=== PATIENT | male | born 1960 | race Caucasian/White ===

== ENCOUNTER 2016-08-29 17:38 | Emergency (ER) | payer BC, OTHER ==
[2016-08-29 18:33] VITALS: TEMP 98.1
[2016-08-29] MEDS ORDERED: RX INFO: IV CONTRAST WAS GIVEN 1 EACH MISC MISCELLANE PRN (19:28)
[2016-08-29] MEDS ORDERED: SODIUM CHLORIDE 0.9% 1,000 ML IV STA ×2 (19:29→19:35)
[2016-08-29 19:33] VITALS: RESP 16
[2016-08-29] MEDS ORDERED: MECLIZINE 12.5 MG TAB PO STA (19:34)
[2016-08-29 19:50] LABS: Basophils % (A) 0 %; CHCM 34.9; Eosinophils # (A) 0.1 k/uL (0-0.7); Eosinophils % (A) 1 %; HCT 49.3 % (39.0-53.0); HDW 2.63; HGB 16.6 gm/dL (13.0-17.5); Luc # (Auto) 0.06; Luc % (Auto) 1; Lymphocytes # (A) 1.1 k/uL (1.0-4.8); Lymphocytes % (A) 9 %; MCHC 33.7 g/dL (31.0-37.0); MCV 86.3 fL (80.0-100.0); Mean Platelet Volume 7.3; Monocytes # (A) 0.3 k/uL (0-1.0); Monocytes % (A) 2 %; Neutrophils # (A) 10.7 k/uL (1.3-7.7); Neutrophils % (A) 88 %; RBC 5.72 m/uL (4.30-5.90); RDW 13.7 % (11.5-15.5); WBC 12.2 k/uL (3.8-10.6); WBC (Perox) 12.14
[2016-08-29 19:58] LABS: Appearance,Urine Clear (Clear); Bilirubin,Urine Negative (Negative); Glucose,Urine (UA) Negative (Negative); Ketones,Urine 1+ (Negative); Leukocyte Esterase,Urine Negative (Negative); Nitrite,Urine Negative (Negative); PH, Urine 7.5 (5.0-8.0); Protein,Urine Trace (Negative); Specific Gravity,Urine 1.016 (1.001-1.035); UA Billing (MACRO vs. MICRO) CHEM; Urobilinogen,Urine <2.0 mg/dL (<2.0)
[2016-08-29 20:03] LABS: Anion Gap 11 mmol/L; Blood Urea Nitrogen 16 mg/dL (9-20); Calcium 9.3 mg/dL (8.4-10.2); Carbon Dioxide 27 mmol/L (22-30); Chloride 102 mmol/L (98-107); Glucose 115 mg/dL (74-99); Magnesium 2.1 mg/dL (1.6-2.3); Non-African American GFR(MDRD) >60 (>60 ml/min/1.73 sqM); Potassium 4.4 mmol/L (3.5-5.1); Sodium 140 mmol/L (137-145)
[2016-08-29 20:04] LABS: Prothrombin Time 10.3 sec (9.0-12.0)
[2016-08-29] MEDS ORDERED: ONDANSETRON 4 MG/2 ML VIAL IVP STA (20:04)
--- NOTE | 2016-08-29 21:04 | CT ---
EXAMINATION TYPE: CT angio head neck DATE OF EXAM: 08/29/2016 8:56 PM COMPARISON: NONE HISTORY: Dizziness today. CT DLP: 1458.50 mGycm Automated exposure control for dose reduction was used. TECHNIQUE: Performed with IV Contrast, patient injected with 65 mL of Omnipaque 350. There are 3-D post processed images.. FINDINGS: There is bilateral contrast opacification of the vertebral arteries. There is bilateral patency of th e common internal and external carotid arteries. There is normal branching pattern of the great vesse ls on the aortic arch. Carotid arteries appear widely patent. There is patency of the vertebrobasilar artery system. There is arterial flow in the anterior middle and posterior cerebral arteries. There is no evidence of aneurysm or neovascularity. There is normal contrast opacification of the venous sinuses. IMPRESSION: NEGATIVE CT ANGIOGRAM OF THE NECK. NEGATIVE CT ANGIOGRAM OF THE BRAIN.
--- NOTE | 2016-08-29 21:05 | CT ---
EXAMINATION TYPE: CT brain wo con DATE OF EXAM: 08/29/2016 8:56 PM COMPARISON: NONE HISTORY: Dizziness today. CT DLP: 1458.50 mGycm Automated exposure control for dose reduction was used. FINDINGS: There is no mass effect nor midline shift. There is no sign of intracranial hemorrhage. Ventricles watson ve normal size. There is no sign of cerebral edema. Calvarium appears intact. IMPRESSION: Negative unenhanced head CT scan.
--- NOTE | 2016-08-29 21:34 | ED ---
Dizziness HPI - General Chief Complaint: Dizziness Stated Complaint: DIZZINESS, VOMITING, COLD SWEATS, WEAKNESS Time Seen by Provider: 08/29/16 19:08 Source: patient Mode of arrival: ambulatory Limitations: no limitations - History of Present Illness Initial Comments: The patient is a 56-year-old male who presents to the ED with a chief complaint of dizziness. The patient states that he has had the sensation of disequilibrium over the course the past 3 weeks. He states that his symptoms have been intermittent in nature. He states they resolve when he takes an antihistamine medication, such as Benadryl. Patient states that he recently stopped taking the antihistamine medication because he felt like he might be precipitating his dizziness. However, since that point in time, he notes that his symptoms have been more frequent and longer lasting. The patient denies any history of CVA. He denies any history of irregular heartbeat. Patient has no cardiac risk factors. Patient denies any history of thyroid disorder. He denies any fevers or chills. Denies any nasal congestion. Denies any cough. Denies any body aches. - Related Data Previous Rx's Medication Instructions Recorded Meclizine [Antivert] 25 mg PO TID PRN #12 tab 08/29/16 Allergies Allergy/AdvReac Type Severity Reaction Status Date / Time No Known Allergies Allergy Verified 08/29/16 19:53 Review of Systems ROS Statement: Those systems with pertinent positive or pertinent negative responses have been documented in the HPI. ROS Other: All systems not noted in ROS Statement are negative. Constitutional: Denies: fever, chills, weakness ENT: Denies: ear pain, throat pain, hearing loss, congestion Respiratory: Denies: cough, dyspnea, wheezes, stridor Cardiovascular: Denies: chest pain, palpitations Endocrine: Denies: fatigue Gastrointestinal: Reports: nausea. Denies: abdominal pain, vomiting, diarrhea, constipation Genitourinary: Denies: urgency, dysuria, frequency Musculoskeletal: Denies: back pain Skin: Denies: rash Neurological: Reports: vertigo. Denies: headache, weakness, numbness, paresthesias, confusion, abnormal gait Psychiatric: Denies: anxiety, depression Past Medical History Additional Past Medical History / Comment(s): kideny stone 20years ago History of Any Multi-Drug Resistant Organisms: None Reported Past Surgical History: No Surgical Hx Reported Past Psychological History: No Psychological Hx Reported Smoking Status: Never smoker Past Alcohol Use History: None Reported Past Drug Use History: None Reported General Exam Limitations: no limitations General appearance: alert, in no apparent distress Head exam: Present: atraumatic, normocephalic Eye exam: Present: normal appearance, PERRL, EOMI, other (patient has fatiguable lateral nystagmus) Pupils: Present: normal accommodation, other (pupils are 3mm, equal and reactive ) ENT exam: Present: normal exam, normal oropharynx Neck exam: Present: normal inspection, full ROM. Absent: thyromegaly Respiratory exam: Present: normal lung sounds bilaterally. Absent: respiratory distress, wheezes, rales, rhonchi, stridor, chest wall tenderness Cardiovascular Exam: Present: regular rate, normal rhythm GI/Abdominal exam: Present: soft. Absent: distended, tenderness, guarding, rebound Extremities exam: Present: normal inspection, full ROM Back exam: Present: normal inspection, full ROM Neurological exam: Present: alert, oriented X3 Psychiatric exam: Present: normal affect Skin exam: Present: warm, dry, intact Course Vital Signs 08/29/16 08/29/16 08/29/16 18:31 19:32 21:50 Temperature 98.1 F Pulse Rate 73 74 76 Respiratory 18 16 16 Rate Blood Pressure 173/116 180/107 180/96 O2 Sat by Pulse 98 98 98 Oximetry Medical Decision Making - Medical Decision Making Patient is a 56-year-old male who presents to ED with a chief complaint of vertigo. Patient states that his symptoms of the present intermittently over the course the past 2-3 weeks. Patient states that his symptoms are worsened with head movement. Patient does have a fatigable horizontal nystagmus to the left. Unfortunately, the patient has gait disturbance. Concern for possible underlying CVA or posterior circulation disorder. Check CT head and CTA head and neck. Bolus patient with IV fluids. Provide patient with Antivert. Check EKG. He patient on [facility]. 9:31 PM Updated patient of overall findings. He states that he is feeling 100% improved at this point in time. Patient is able to ambulate without difficulty. He is able to turn his head from [id number] without reproduction of his symptoms. Patient will be discharged with prescription for Antivert to take when experiencing vertigo at home. I have counseled the patient if he has worsening vertigo that does not resolve with Antivert, that he should return to the ED for further workup and possible MRI. I counseled the patient regarding follow-up with his PCP for further evaluation, even if his symptoms resolve. I have answered all of the patient's questions to his satisfaction. - Lab Data Result diagrams: 08/29/16 19:38 08/29/16 19:38 Lab Results 08/29/16 08/29/16 08/29/16 Range/Units 19:38 19:38 19:38 WBC 12.2 H (3.8-10.6) k/uL RBC 5.72 (4.30-5.90) m/uL Hgb 16.6 (13.0-17.5) gm/dL Hct 49.3 (39.0-53.0) % MCV 86.3 (80.0-100.0) fL MCH 29.0 (25.0-35.0) pg MCHC 33.7 (31.0-37.0) g/dL RDW 13.7 (11.5-15.5) % Plt Count 175 (150-450) k/uL Neutrophils % 88 % Lymphocytes % 9 % Monocytes % 2 % Eosinophils % 1 % Basophils % 0 % Neutrophils # 10.7 H (1.3-7.7) k/uL Lymphocytes # 1.1 (1.0-4.8) k/uL Monocytes # 0.3 (0-1.0) k/uL Eosinophils # 0.1 (0-0.7) k/uL Basophils # 0.0 (0-0.2) k/uL PT (9.0-12.0) sec INR (<1.1) APTT (22.0-30.0) sec Sodium 140 (137-145) mmol/L Potassium 4.4 (3.5-5.1) mmol/L Chloride 102 (98-107) mmol/L Carbon Dioxide 27 (22-30) mmol/L Anion Gap 11 mmol/L BUN 16 (9-20) mg/dL Creatinine 0.90 (0.66-1.25) mg/dL Est GFR (MDRD) Af Amer >60 (>60 ml/min/1.73 sqM) Est GFR (MDRD) Non-Af >60 (>60 ml/min/1.73 sqM) Glucose 115 H (74-99) mg/dL Calcium 9.3 (8.4-10.2) mg/dL Magnesium 2.1 (1.6-2.3) mg/dL Troponin I <0.012 (0.000-0.034) ng/mL TSH 2.460 (0.465-4.680) mIU/L Urine Color Urine Appearance (Clear) Urine pH (5.0-8.0) Ur Specific [place] (1.001-1.035) Urine Protein (Negative) Urine Glucose (UA) (Negative) Urine Ketones (Negative) Urine Blood (Negative) Urine Nitrite (Negative) Urine Bilirubin (Negative) Urine Urobilinogen (<2.0) mg/dL Ur Leukocyte Esterase (Negative) 08/29/16 08/29/16 Range/Units 19:38 19:53 WBC (3.8-10.6) k/uL RBC (4.30-5.90) m/uL Hgb (13.0-17.5) gm/dL Hct (39.0-53.0) % MCV (80.0-100.0) fL MCH (25.0-35.0) pg MCHC (31.0-37.0) g/dL RDW (11.5-15.5) % Plt Count (150-450) k/uL Neutrophils % % Lymphocytes % % Monocytes % % Eosinophils % % Basophils % % Neutrophils # (1.3-7.7) k/uL Lymphocytes # (1.0-4.8) k/uL Monocytes # (0-1.0) k/uL Eosinophils # (0-0.7) k/uL Basophils # (0-0.2) k/uL PT 10.3 (9.0-12.0) sec INR 1.0 (<1.1) APTT 23.0 (22.0-30.0) sec Sodium (137-145) mmol/L Potassium (3.5-5.1) mmol/L Chloride (98-107) mmol/L Carbon Dioxide (22-30) mmol/L Anion Gap mmol/L BUN (9-20) mg/dL Creatinine (0.66-1.25) mg/dL Est GFR (MDRD) Af Amer (>60 ml/min/1.73 sqM) Est GFR (MDRD) Non-Af (>60 ml/min/1.73 sqM) Glucose (74-99) mg/dL Calcium (8.4-10.2) mg/dL Magnesium (1.6-2.3) mg/dL Troponin I (0.000-0.034) ng/mL TSH (0.465-4.680) mIU/L Urine Color Yellow Urine Appearance Clear (Clear) Urine pH 7.5 (5.0-8.0) Ur Specific [place] 1.016 (1.001-1.035) Urine Protein Trace H (Negative) Urine Glucose (UA) Negative (Negative) Urine Ketones 1+ H (Negative) Urine Blood Negative (Negative) Urine Nitrite Negative (Negative) Urine Bilirubin Negative (Negative) Urine Urobilinogen <2.0 (<2.0) mg/dL Ur Leukocyte Esterase Negative (Negative) Disposition Clinical Impression: Vertigo Disposition: HOME SELF-CARE Instructions: Vertigo (ED) Additional Instructions: Please take Antivert at home every six hours as needed for your symptoms. Please return to the ED should you continue to have vertigo despite taking this medication. I have given you the name of a Primary Care Physician. Please call her office to schedule a follow up appointment should you need a PCP. Prescriptions: Meclizine [Antivert] 25 mg PO TID PRN #12 tab PRN Reason: Vertigo Referrals: Elba Tam MD [STAFF PHYSICIAN] - 09/05/16 (Dr. Tam is a Primary Care Physician. You can call her office to schedule a follow-up appointment, should you need one) Time of Disposition: 21:31
[2016-08-29 21:51] VITALS: BP 180/96; PULSE 76
== END 2016-08-29 21:51 | disposition home or self-care (01) ==
LOC: EC 17:38
DX: R42 Dizziness and giddiness (principal); R11.10 Vomiting, unspecified
CPT/HCPCS: 36415; 93005; 80048; 84443; 83735; 84484; 85025; 85610; 85730; 81003; 70496; 70450; 70498; 99284; 96374; Q9967; J2405

== ENCOUNTER 2019-10-07 12:04 | Emergency (ER) | payer BC, OTHER ==
[2019-10-07 12:21] VITALS: RESP 18
[2019-10-07] MEDS ORDERED: SODIUM CHLORIDE 0.9% 1,000 ML IV STA (12:34)
[2019-10-07] MEDS ORDERED: KETOROLAC 30 MG/ML 1 ML VIAL IVP STA (12:34)
[2019-10-07] MEDS ORDERED: PANTOPRAZOLE 40 MG/10 ML VIAL IVP STA (12:34)
[2019-10-07] MEDS ORDERED: ONDANSETRON 4 MG/2 ML VIAL IVP STA (12:34)
--- NOTE | 2019-10-07 12:37 | ED ---
Abdominal Pain HPI - General Chief Complaint: Abdominal Pain Stated Complaint: Abdominal Pain Time Seen by Provider: 10/07/19 12:29 Source: patient, family Mode of arrival: wheelchair Limitations: no limitations - History of Present Illness Initial Comments: Patient is a 59-year-old male presenting to the emergency department with a chief complaint of abdominal pain. Patient reports sudden onset of left flank pain on left lower quadrant abdominal pain. Reports the pain started early this morning and the pain continues to be constant. It is sharp in nature. Does report nausea with one episodes of nonbilious, nonbloody vomiting. Denies any testicular pain or swelling or penile discharge. Denies any hematuria, hematochezia or melena. Denies any night sweats fevers or chills. Denies any shortness of breath or chest pain. Does have history of kidney stones which occurred about 25 years ago. No history of abdominal surgeries. - Related Data Previous Rx's Medication Instructions Recorded Meclizine [Antivert] 25 mg PO TID PRN #12 tab 08/29/16 HYDROcodone/APAP 7.5-325MG [[place] 1 tab PO Q6HR PRN 3 Days #12 tab 10/07/19 7.5-325] Ondansetron Odt [Zofran Odt] 4 mg PO Q8HR PRN #20 tab 10/07/19 Tamsulosin [Flomax] 0.4 mg PO DAILY #7 cap 10/07/19 Allergies Allergy/AdvReac Type Severity Reaction Status Date / Time No Known Allergies Allergy Verified 10/07/19 12:21 Review of Systems ROS Statement: Those systems with pertinent positive or pertinent negative responses have been documented in the HPI. ROS Other: All systems not noted in ROS Statement are negative. Past Medical History Past Medical History: Hypertension Additional Past Medical History / Comment(s): kideny stone 20years ago History of Any Multi-Drug Resistant Organisms: None Reported Past Surgical History: No Surgical Hx Reported Past Psychological History: No Psychological Hx Reported Smoking Status: Never smoker Past Alcohol Use History: Heavy, Rare Past Drug Use History: None Reported General Exam Limitations: no limitations General appearance: alert, in no apparent distress Head exam: Present: atraumatic, normocephalic, normal inspection Eye exam: Present: normal appearance, PERRL, EOMI Pupils: Present: normal accommodation ENT exam: Present: normal exam, normal oropharynx, mucous membranes moist Neck exam: Present: normal inspection, full ROM Respiratory exam: Present: normal lung sounds bilaterally. Absent: respiratory distress, wheezes Cardiovascular Exam: Present: regular rate, normal rhythm, normal heart sounds GI/Abdominal exam: Present: soft, distended (Mild distention), tenderness (Left lower quadrant tenderness). Absent: guarding, rebound, rigid Extremities exam: Present: normal inspection, full ROM, normal capillary refill, other (+2 ulnar and radial pulses bilaterally.) Back exam: Present: normal inspection, full ROM, CVA tenderness (L) Neurological exam: Present: alert, oriented X3 Psychiatric exam: Present: normal affect, normal mood Skin exam: Present: warm, dry, intact, normal color Course Vital Signs 10/07/19 12:15 Temperature 97.5 F L Pulse Rate 76 Respiratory 18 Rate Blood Pressure 146/87 O2 Sat by Pulse 98 Oximetry Medical Decision Making - Medical Decision Making Patient is 59-year-old male presents emergency Department with a chief complaint of abdominal pain. Exam patient is sent left knee tenderness with left lower quadrant pain. CBC and CMP are unremarkable. UA does show elevated red blood cells with no signs of a urinary tract infection. CT abdomen and pelvis reveals a 2.5 mm stone in the proximal ureter with mild hydronephrosis on the left side. Patient was given analgesia, antiemetics and fluids in the ED. Patient will be discharged with Flomax, [place] and antiemetics. He was advised to follow-up with urologist. On reevaluation patient reports improvement in symptoms. He was advised about possible side effects of medication. Return parameters were thoroughly discussed with patient was understanding and agreeable. Case discussed with physician. - Lab Data Result diagrams: 10/07/19 13:05 10/07/19 13:05 Lab Results 10/07/19 10/07/19 10/07/19 Range/Units 13:05 13:05 13:05 WBC 11.6 H (3.8-10.6) k/uL RBC 5.53 (4.30-5.90) m/uL Hgb 16.2 (13.0-17.5) gm/dL Hct 48.2 (39.0-53.0) % MCV 87.1 (80.0-100.0) fL MCH 29.3 (25.0-35.0) pg MCHC 33.6 (31.0-37.0) g/dL RDW 13.6 (11.5-15.5) % Plt Count 209 (150-450) k/uL Neutrophils % 85 % Lymphocytes % 11 % Monocytes % 3 % Eosinophils % 1 % Basophils % 0 % Neutrophils # 9.9 H (1.3-7.7) k/uL Lymphocytes # 1.3 (1.0-4.8) k/uL Monocytes # 0.3 (0-1.0) k/uL Eosinophils # 0.1 (0-0.7) k/uL Basophils # 0.0 (0-0.2) k/uL Sodium 137 (137-145) mmol/L Potassium 5.2 H (3.5-5.1) mmol/L Chloride 104 (98-107) mmol/L Carbon Dioxide 24 (22-30) mmol/L Anion Gap 9 mmol/L BUN 24 H (9-20) mg/dL Creatinine 1.07 (0.66-1.25) mg/dL Est GFR (CKD-EPI)AfAm 89 (>60 ml/min/1.73 sqM) Est GFR (CKD-EPI)NonAf 77 (>60 ml/min/1.73 sqM) Glucose 148 H (74-99) mg/dL Calcium 9.3 (8.4-10.2) mg/dL Total Bilirubin 0.7 (0.2-1.3) mg/dL AST 42 (17-59) U/L ALT 60 H (4-49) U/L Alkaline Phosphatase 51 (38-126) U/L Total Protein 7.9 (6.3-8.2) g/dL Albumin 4.6 (3.5-5.0) g/dL Amylase 72 (30-110) U/L Lipase 214 (23-300) U/L Urine Color Yellow Urine Appearance Clear (Clear) Urine pH 5.0 (5.0-8.0) Ur Specific [place] 1.024 (1.001-1.035) Urine Protein Trace H (Negative) Urine Glucose (UA) Negative (Negative) Urine Ketones Negative (Negative) Urine Blood Moderate H (Negative) Urine Nitrite Negative (Negative) Urine Bilirubin Negative (Negative) Urine Urobilinogen <2.0 (<2.0) mg/dL Ur Leukocyte Esterase Negative (Negative) Urine RBC >182 H (0-5) /hpf Urine WBC 2 (0-5) /hpf Ur Squamous Epith Cells <1 (0-4) /hpf Urine Mucus Rare H (None) /hpf Disposition Clinical Impression: Abdominal pain, Renal stone, Hydronephrosis Disposition: HOME SELF-CARE Condition: Good Instructions (If sedation given, give patient instructions): Kidney Stones (ED) Additional Instructions: Take prescribed medication as directed. Follow-up with urologist. Return to emergency department if symptoms worsen. Is patient prescribed a controlled substance at d/c from ED?: No Referrals: None,Stated [Primary Care Provider] - 1-2 days Mook Dasilva MD [STAFF PHYSICIAN] - 1-2 days Time of Disposition: 14:18
[2019-10-07 13:31] LABS: Basophils % (A) 0 %; Eosinophils # (A) 0.1 k/uL (0-0.7); Eosinophils % (A) 1 %; HCT 48.2 % (39.0-53.0); HGB 16.2 gm/dL (13.0-17.5); Lymphocytes # (A) 1.3 k/uL (1.0-4.8); Lymphocytes % (A) 11 %; MCH 29.3 pg (25.0-35.0); MCHC 33.6 g/dL (31.0-37.0); MCV 87.1 fL (80.0-100.0); Monocytes # (A) 0.3 k/uL (0-1.0); Monocytes % (A) 3 %; Neutrophils # (A) 9.9 k/uL (1.3-7.7); Neutrophils % (A) 85 %; Platelet Count 209 k/uL (150-450); RBC 5.53 m/uL (4.30-5.90); RDW 13.6 % (11.5-15.5); WBC 11.6 k/uL (3.8-10.6)
[2019-10-07 13:34] LABS: Appearance,Urine Clear (Clear); Bilirubin,Urine Negative (Negative); Blood,Urine Moderate (Negative); Color,Urine Yellow; Glucose,Urine (UA) Negative (Negative); Ketones,Urine Negative (Negative); Leukocyte Esterase,Urine Negative (Negative); Mucus,Urine Rare /hpf; Nitrite,Urine Negative (Negative); Protein,Urine Trace (Negative); RBC,Urine >182 /hpf (0-5); Specific Gravity,Urine 1.024 (1.001-1.035); Squamous Epithelial Cell,Urine <1 /hpf (0-4); Urobilinogen,Urine <2.0 mg/dL (<2.0); WBC,Urine 2 /hpf (0-5)
[2019-10-07 13:39] LABS: Albumin 4.6 g/dL (3.5-5.0); Calcium 9.3 mg/dL (8.4-10.2); Potassium 5.2 mmol/L (3.5-5.1); Total Bilirubin 0.7 mg/dL (0.2-1.3); Total Protein 7.9 g/dL (6.3-8.2)
[2019-10-07] MEDS ORDERED: MORPHINE SULFATE 4 MG/ML SYRINGE IVP STA (13:50)
--- NOTE | 2019-10-07 14:02 | CT ---
EXAMINATION TYPE: CT abdomen pelvis w con DATE OF EXAM: 10/07/2019 COMPARISON: None HISTORY: Abdominal pain, LLQ pain CT DLP: 1719.5 mGycm CONTRAST: CT scan of the abdomen and pelvis is performed without Oral Contrast and with IV Contrast, patient in jected with 100 ml mL of Isovue 300. FINDINGS: LUNG BASES-: No visible nodule. No infiltrate. LIVER/GB: There is evidence of cholelithiasis without wall thickening. No space occupying hepatic lesion. Biliary tree is of normal caliber. PANCREAS: No inflammation. No distinct mass. SPLEEN: No splenic enlargement. No lesion seen. ADRENALS: No nodule. No thickening. KIDNEYS/BLADDER: Very mild left-sided hydronephrosis secondary to a proximal left ureteral 2.5 mm mat culus. Calculus is situated at the L2-3 level. Nonobstructing 3 mm calculus upper pole left kidney. N o distinct renal mass. Urinary bladder grossly unremarkable. BOWEL: Normal appendix. Normal bowel caliber. No inflammation. GENITAL ORGANS: No gross abnormality. LYMPH NODES: No greater than 1cm abdominal or pelvic lymph nodes are appreciated. AORTA: No significant abnormality. OSSEOUS STRUCTURES: No significant abnormality is seen. OTHER: Fat-containing umbilical hernia. IMPRESSION: 1. Very mild left-sided hydronephrosis secondary to a proximal left ureteral 2.5 mm calculus. Calculu s is situated at the L2-3 level.
[2019-10-07 14:37] VITALS: BP 123/76; PULSE 87; TEMP 97.2
== END 2019-10-07 14:38 | disposition home or self-care (01) ==
LOC: EC 12:04
DX: N13.2 Hydronephrosis with renal and ureteral calculous obstruction (principal)
CPT/HCPCS: 36415; 80053; 82150; 83690; 85025; 81001; 74177; 99284; 96374; 96375 ×3; 96361; J2270; J2405; J1885; C9113; Q9967

== ENCOUNTER → 2019-10-13 | Outpatient (CLI) | payer BC ==
--- NOTE | 2019-10-13 10:51 | XR ---
EXAMINATION TYPE: XR KUB DATE OF EXAM: 10/13/2019 COMPARISON: 09/17/2019 HISTORY: Left-sided pain TECHNIQUE: One view abdominal series FINDINGS: The osseous structures are intact. The bowel gas pattern is nonspecific. Left kidney: There are 2 calcifications overlying the left renal outline both measuring 2 mm. No yuly tional suspicious calcifications are seen. Calcifications the pelvis are likely vascular. Density conrad trally within the pelvis is nonspecific. IMPRESSION: 1. Suspect 2 calcifications within the left kidney both measuring approximately 2 mm. No additional d efinite suspicious calcifications noted..
== END | disposition home or self-care (01) ==
LOC: RADXRMAIN 10:26
PROVIDERS: ATTEND Urology
DX: N20.0 Calculus of kidney (principal); N20.1 Calculus of ureter
CPT/HCPCS: 74018

== ENCOUNTER → 2019-10-19 | Outpatient (CLI) | payer BC ==
[2019-10-19 09:03] LABS: Appearance,Urine Clear (Clear); Bilirubin,Urine Negative (Negative); Blood,Urine Negative (Negative); Color,Urine Yellow; Glucose,Urine (UA) Negative (Negative); Ketones,Urine Negative (Negative); Leukocyte Esterase,Urine Negative (Negative); Nitrite,Urine Negative (Negative); Protein,Urine Negative (Negative); Specific Gravity,Urine 1.022 (1.001-1.035); Urobilinogen,Urine <2.0 mg/dL (<2.0)
== END | disposition home or self-care (01) ==
LOC: LABPAT 08:18
PROVIDERS: ATTEND Urology
DX: Z01.818 Encounter for other preprocedural examination (principal); N20.0 Calculus of kidney
CPT/HCPCS: 81003; 87086

== ENCOUNTER 2019-10-26 09:41 | Day surgery (SDC) | payer BC ==
[2019-10-22 15:20] VITALS: BMI 32.3
--- NOTE | 2019-10-25 19:03 | P.GSHP ---
History of Present Illness H&P Date: 10/25/19 59 yo male who recently a left upj stone, 5mm and a 5mm left renal stone. They are symptomatic and would like these removed He comes for eswl left The risks complications and alternatives have been discussed. - Constitutional Constitutional: Denies chills, Denies fever - EENT Eyes: denies blurred vision, denies pain Ears, nose, mouth and throat: Denies headache, Denies sore throat - Cardiovascular Cardiovascular: Denies chest pain, Denies shortness of breath - Respiratory Respiratory: Denies cough, Denies 7 - Gastrointestinal Gastrointestinal: Denies abdominal pain, Denies diarrhea, Denies nausea, Denies vomiting - Genitourinary (Female) Genitourinary: Denies dysuria, Denies hematuria - Genitourinary (Male) Genitourinary: Denies dysuria, Denies hematuria - Musculoskeletal Musculoskeletal: Denies myalgias - Integumentary Integumentary: Denies pruritus, Denies rash - Neurological Neurological: Denies numbness, Denies weakness - Psychiatric Psychiatric: Denies anxiety, Denies depression - Endocrine Endocrine: Denies fatigue, Denies weight change Past Medical History Past Medical History: Hypertension Additional Past Medical History / Comment(s): kidney stones History of Any Multi-Drug Resistant Organisms: None Reported Past Surgical History: No Surgical Hx Reported Additional Past Surgical History / Comment(s): lithotripsy Past Anesthesia/Blood Transfusion Reactions: Postoperative Nausea & Vomiting (PONV) Smoking Status: Never smoker Medications and Allergies Home Medications Medication Instructions Recorded Confirmed Type Lisinopril [Zestril] 5 mg PO HS 10/22/19 10/22/19 History Allergies Allergy/AdvReac Type Severity Reaction Status Date / Time No Known Allergies Allergy Verified 10/22/19 15:16 Surgical - Exam - General well developed, well nourished, no distress - Eyes PERRL - ENT no hearing loss - Neck no masses - Respiratory normal expansion, normal respiratory effort - Cardiovascular Rhythm: regular - Abdomen Abdomen: soft, non tender - Genitourinary normal penis with no external lesions, testicles present - Integumentary no rash, no growths - Neurologic normal coordination, normal sensation - Musculoskeletal normal gait, normal posture - Psychiatric oriented to time, oriented to person, oriented to place, speech is normal, memory intact Results - Imaging Abdominal x-ray: report reviewed, image reviewed CT scan - abdomen: report reviewed, image reviewed CT scan - pelvis: report reviewed, image reviewed Assessment and Plan Assessment: Impression: Left renal stones Plan: ESWL left
[~2019-10-26 09:41] MED LIST: LACTATED RINGERS 1,000 ML IV SCH; LIDOCAINE 1% (10MG/ML) FOR IV START INTRADERMA PRN; Pre Op ABX Message 1 EACH MISC MISCELLANE ONE
--- NOTE | 2019-10-26 10:13 | XR ---
EXAMINATION TYPE: XR KUB DATE OF EXAM: 10/26/2019 Comparison: 10/13/2019 Clinical History: 59-year-old male left-sided kidney stones, lithotripsy today Findings: Subtle 3.5 mm density in the left side of the pelvis not clearly seen on 10/13/2019. Remainder of the r ounded calcifications are unchanged. Nonobstructive bowel gas pattern. Mild stool in the right side o f the abdomen. Impression: Suspected 3.5 mm distal left ureteral calculus.
[2019-10-26 10:17] VITALS: RESP 16; TEMP 97.3
[2019-10-26] MEDS ORDERED: KETAMINE 10 MG/ML 20 ML VIAL ONE (10:39)
[2019-10-26] MEDS ORDERED: LIDOCAINE 1% INJ 10MG/ML (20 ML MDV) ONE (10:39)
[2019-10-26] MEDS ORDERED: FUROSEMIDE 10 MG/ML 2 ML VIAL ONE (10:39)
[2019-10-26] MEDS ORDERED: PROPOFOL 10 MG/ML 20 ML VIAL IV ONE (10:39)
[2019-10-26] MEDS ORDERED: MIDAZOLAM 2 MG/2 ML VIAL ONE (10:39)
[2019-10-26] MEDS ORDERED: fentaNYL (PF) 50 MCG/ML 2 ML AMP ONE (10:39)
--- NOTE | 2019-10-26 11:21 | P.OP ---
Date of Procedure: 10/26/19 Preoperative Diagnosis: Left ureteral stone Postoperative Diagnosis: Same Procedure(s) Performed: Extracorporeal shockwave lithotripsy left, 2500 shocks of energy level Anesthesia: MAC Surgeon: Mook Dasilva Estimated Blood Loss (ml): 0 Pathology: none sent Condition: stable Disposition: PACU Indications for Procedure: The patient is 59. He has a 5 mm left ureteral stone. He is having pain. He wishes to be removed. We discussed options. He comes for shockwave lithotrip sy. The KUB today shows the stone is moved down into the true pelvis. Description of Procedure: Patient is brought to the operating suite. He is given IV sedation on the op erating table 2500 shocks at energy 6 administered. The stone appears to fracture. She patient awake and returned recovery in good condition. He is given 10 mg Lasix preoperatively. He'll be discharged home upon recovery and found the office in one week with a KUB.
[2019-10-26 12:24] VITALS: BP 146/95; PULSE 76
== END 2019-10-26 12:26 | disposition home or self-care (01) ==
LOC: ORWHC2ENDO 09:41
PROVIDERS: ATTEND Urology
DX: N20.1 Calculus of ureter (principal); I10 Essential (primary) hypertension; Z79.899 Other long term (current) drug therapy; Z98.890 Other specified postprocedural states; Z91.89 Other specified personal risk factors, not elsewhere classified; Z87.442 Personal history of urinary calculi; Z83.3 Family history of diabetes mellitus; Z82.49 Family history of ischemic heart disease and other diseases of the circulatory system
CPT/HCPCS: 74018; 50590; J2250; J1940; J2001; J3010; J2704

== ENCOUNTER → 2019-11-02 | Outpatient (CLI) | payer BC ==
--- NOTE | 2019-11-02 08:55 | XR ---
EXAMINATION TYPE: XR KUB DATE OF EXAM: 11/02/2019 COMPARISON: NONE HISTORY: Pain TECHNIQUE: One view abdominal series FINDINGS: The osseous structures are intact. The bowel gas pattern is nonspecific. There is a lucent lesion in volving the right pubic ramus. There is a 3 mm calcification left hemipelvis stable in position. Calcifications involving the right hemipelvis are also stable. They appear vascular. Intermediate density overlying the central margin o f the pelvis and bladder also stable dating back to multiple exams. Right kidney: No definite calcifications. Left kidney: There is a 2 mm left upper pole renal calculus. Multiple gallstones incidentally noted. IMPRESSION: 1. Stable suspected distal left ureteral calculus measuring approximately 3 mm. 2. Stable upper pole left renal calculus. Lower pole calculus appears to migrated into the ureter and is now noted in the pelvis as discussed above.
== END | disposition home or self-care (01) ==
LOC: RADXRMAIN 06:53
PROVIDERS: ATTEND Urology
DX: N20.0 Calculus of kidney (principal)
CPT/HCPCS: 74018

== ENCOUNTER → 2020-02-22 | Outpatient (CLI) | payer BC ==
--- NOTE | 2020-02-22 15:46 | XR ---
EXAMINATION TYPE: XR KUB DATE OF EXAM: 02/22/2020 10:13 AM CLINICAL HISTORY: Left flank pain. History of stones. TECHNIQUE: Supine images of the abdomen and pelvis were obtained COMPARISON: KUB 11/02/2019. CT abdomen pelvis 10/07/2019. FINDINGS: Cholelithiasis. 3 mm and punctate calcifications overlie the left renal upper pole, [facility] ed from 11/02/2019 comparison. The previously demonstrated distal left ureteral 3 mm calcification is not visualized on current exam and likely passed. Redemonstrated pelvic phleboliths and vas deferens calcification. Nonspecific bowel gas pattern. No organomegaly. The osseous structures are intact. IMPRESSION: 1. Previously demonstrated left distal ureteral 3 mm calculus on 11/02/2019 comparison is not seen on current exam, and likely passed. 2. Unchanged left nephrolithiasis. 3. Cholelithiasis.
== END | disposition home or self-care (01) ==
LOC: RADXRMAIN 10:01
PROVIDERS: ATTEND Urology
DX: N20.0 Calculus of kidney (principal); K80.20 Calculus of gallbladder without cholecystitis without obstruction
CPT/HCPCS: 74018

== ENCOUNTER → 2020-05-31 | Outpatient (CLI) | payer BC ==
[2020-05-31 08:14] LABS: HCT 45.4 % (39.0-53.0); HGB 15.7 gm/dL (13.0-17.5); MCH 29.7 pg (25.0-35.0); MCHC 34.6 g/dL (31.0-37.0); MCV 85.6 fL (80.0-100.0); Mean Platelet Volume 7.2; Platelet Count 206 k/uL (150-450); RDW 13.3 % (11.5-15.5); WBC 7.1 k/uL (3.8-10.6)
== END | disposition home or self-care (01) ==
LOC: LABPAT 07:21
PROVIDERS: ATTEND Student in an Organized Health Care Education/Training Program
DX: Z01.818 Encounter for other preprocedural examination (principal); K46.9 Unspecified abdominal hernia without obstruction or gangrene; Z20.822 Contact with and (suspected) exposure to COVID-19
CPT/HCPCS: 85027; 93005; 36415; U0003; C9803; U0005; 86850; 86900; 86901

== ENCOUNTER 2020-06-07 12:40 | Day surgery (SDC) | payer BC ==
[2020-06-02 10:41] VITALS: BMI 32.8
[~2020-06-07 12:40] MED LIST changes: +DEXAMETHASONE SOD PHOSPHATE 4 MG/ML 1 ML VIAL IV ONE; +HEPARIN SODIUM,PORCINE 5,000 UNIT/ML 1 ML VIAL SQ PRN; -LACTATED RINGERS 1,000 ML IV SCH; +MIDAZOLAM 2 MG/2 ML VIAL IV PRN; +ONDANSETRON 4 MG/2 ML VIAL IVP ONE; -Pre Op ABX Message 1 EACH MISC MISCELLANE ONE
[2020-06-07] MEDS ORDERED: ONDANSETRON 4 MG/2 ML VIAL ONE (13:17)
[2020-06-07] MEDS: LACTATED RINGERS 1,000 ML IV SCH ×2 (13:38→18:48)
[2020-06-07] MEDS ORDERED: SUCCINYLCHOLINE CHLORIDE 100 MG/5 ML SYR IV ONE (15:05)
[2020-06-07] MEDS ORDERED: ROCURONIUM 10 MG/ML (10 ML VIAL) IV ONE (15:05)
[2020-06-07] MEDS ORDERED: GLYCOPYRROLATE 0.2 MG/ML 2 ML VIAL ONE (15:05)
[2020-06-07] MEDS ORDERED: HYDROmorphone (PF) 1 MG/ML ONE (15:05)
[2020-06-07] MEDS ORDERED: LIDOCAINE 1% INJ 10MG/ML (20 ML MDV) ONE (15:05)
[2020-06-07] MEDS ORDERED: MIDAZOLAM 2 MG/2 ML VIAL ONE (15:05)
[2020-06-07] MEDS ORDERED: NEOSTIGMINE 1 MG/ML 10 ML VIAL ONE (15:05)
[2020-06-07] MEDS ORDERED: fentaNYL (PF) 50 MCG/ML 2 ML AMP ONE (15:05)
[2020-06-07] MEDS ORDERED: PROPOFOL 10 MG/ML 20 ML VIAL IV ONE (15:05)
[2020-06-07] MEDS ORDERED: BUPIVACAINE (PF) 0.5% 30 ML VIAL SQ ONE (15:31)
--- NOTE | 2020-06-07 16:33 | P.OP ---
Date of Procedure: 06/07/20 Preoperative Diagnosis: Incarcerated umbilical hernia Postoperative Diagnosis: Same Procedure(s) Performed: Robotic-assisted laparoscopic repair of incarcerated umbilical hernia Anesthesia: DIPIKA Surgeon: Marlon Hickman Estimated Blood Loss (ml): 5 Condition: stable Disposition: PACU Description of Procedure: Patient is brought back to the operative suite remained in supine position underwent general endotracheal anesthesia per Department of anesthesia prepped and draped usual sterile fashion timeout performed correct patient correct procedure correct site was verified. A 5 mm incision was made in the right upper quadrant at [place] and using a 5 mm Visiport the abdomen was entered under direct visualization and insufflated no injuries were noted. An 8 mm port was placed in the left lower quadrant a 12 mm port was placed in the left midabdomen laterally. The 5 mm port was upsized to an 8 mm port. The mesh was placed inside the abdomen the hernia with had incarcerated omentum which was reduced. The robot was docked the hernia sac was reduced and hernia contents were excised the defect was then closed with a stratafix suture and the mesh was brought up to the anterior abdominal wall with the aid of a Fred-Jamaal suture passer the mesh was circumferentially sutured to the anterior abdominal wall using 2-0 vlock suture. The skeleton the mesh was removed and taken off the 12 mm port site along with the needles and an Endo Catch bag was used to remove the hernia contents which were sent to pathology. The 12 mm port site fascia was closed with an 0 Vicryl with 8 of a Fred-Jamaal suture passer skin was closed with 4-0 Monocryl and skin glue patient tolerated the procedure well there are no apparent complications Plan - Discharge Summary Discharge Rx Participant: Yes New Discharge Prescriptions: New HYDROcodone/APAP 5-325MG [[place] 5-325] 1 tab PO Q4HR PRN 3 Days #18 tab PRN Reason: Pain No Action lisinopriL [Zestril] 5 mg PO HS Discharge Medication List lisinopriL [Zestril] 5 mg PO HS 10/22/19 [History] HYDROcodone/APAP 5-325MG [[place] 5-325] 1 tab PO Q4HR PRN 3 Days #18 tab 06/07/20 [Rx] Follow up Appointment(s)/Referral(s): Marlon Hickman, DO [Doctor of Osteopathic Medicine] - 2 Weeks Patient Instructions/Handouts: *Surgery [facility] - (Anesthesia) Discharge Instructions Outpatient Surgery, Ventral Hernia (ED) Activity/Diet/Wound Care/Special Instructions: No baths or swimming for 2-3 weeks Patient may shower tomorrow No lifting over 10-15 pounds for 4-5 weeks Discharge Disposition: HOME SELF-CARE
[2020-06-07 16:46] VITALS: TEMP 97.1
[2020-06-07] MEDS: HYDROmorphone 0.5 MG/0.5 ML SYRINGE IVP PRN ×4 (16:47→17:05)
[2020-06-07] MEDS ORDERED: diphenhydrAMINE 50 MG/ML 1 ML VIAL IVP ONE (17:30)
[2020-06-07] MEDS ORDERED: LABETALOL SYRINGE 5 MG/ML IVP ONE ×2 (17:37→17:57)
[2020-06-07 18:03] VITALS: RESP 16
[2020-06-07 18:17] VITALS: PULSE 87
[2020-06-07 18:52] VITALS: BP 122/88
== END 2020-06-07 19:29 | disposition home or self-care (01) ==
LOC: OR 12:40
PROVIDERS: ATTEND Student in an Organized Health Care Education/Training Program
DX: K42.0 Umbilical hernia with obstruction, without gangrene (principal); I10 Essential (primary) hypertension; Z83.3 Family history of diabetes mellitus; Z87.442 Personal history of urinary calculi; Z82.49 Family history of ischemic heart disease and other diseases of the circulatory system; Z79.899 Other long term (current) drug therapy
CPT/HCPCS: 49653; S2900; 86850; 86900; 86901; 88302

== ENCOUNTER → 2024-02-17 | Outpatient (CLI) | payer BC ==
--- NOTE | 2024-02-18 09:23 | MR ---
EXAMINATION TYPE: MR brain and iac wo/w con DATE OF EXAM: 02/17/2024 10:13 PM CLINICAL INDICATION: Male, 63 years old with history of H90.A22; PHH, hearing loss left ear. COMPARISON: 10/07/2019 TECHNIQUE: Multi planar, multi sequence imaging was performed through the brain. Specialized thin s equences were obtained through the internal auditory canals. Pre-and post gadolinium sequences were obtained. MR contrast: IV Contrast: 10 cc Gadavist FINDINGS: The gomez-white junctions, ventricular system, and cisterns appear unremarkable. Scattered foci of h igh T2 signal intensity are seen within the periventricular white matter. Midline structures show no abnormality. Diffusion-weighted imaging shows no evidence of restricted diffusion. The susceptibility weighted images do not reveal any evidence for micro-hemorrhage. The bone marrow signal is within normal limits. Paranasal sinuses and mastoid air cells: Mild scattered paranasal sinus disease. Visualized orbits: Orbital contents are intact. After administration of gadolinium, no abnormal enhancement is seen. The internal auditory canal sequences demonstrate no significant irregularity. The 7th cranial nerve s, 8 cranial nerves, and cerebellar pontine angles appear unremarkable. After the administration andrea olinium, no abnormal enhancement is seen within the internal auditory canals. Vascular loop: None. IMPRESSION: 1. No evidence of intracranial mass nor acute/subacute CVA. 2. No evidence of internal auditory canal abnormality. 3. Nonspecific white matter changes, likely secondary to small vessel ischemic disease. [facility], , 02/18/2024 9:21 AM
== END | disposition home or self-care (01) ==
LOC: RADMRIMAIN 21:30
PROVIDERS: ATTEND Otolaryngology
DX: H90.A22 Sensorineural hearing loss, unilateral, left ear, with restricted hearing on the contralateral side
CPT/HCPCS: 70553

== ENCOUNTER 2024-04-19 03:18 | Emergency (ER) | payer OTHER, BC ==
[2024-04-19 03:27] VITALS: BP 142/91; PULSE 94; RESP 18; TEMP 98
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
== END 2024-04-19 04:51 | disposition home or self-care (01) ==
LOC: EC 03:18
DX: Z02.83 Encounter for blood-alcohol and blood-drug test (principal)
CPT/HCPCS: 99499